=== PATIENT | female | born 1995 | race American Indian/Alaskan Native ===

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

== ENCOUNTER 2020-03-23 13:44 | Emergency (ER) | payer MEDICAID ==
[2020-03-23 15:11] LABS: Blood Urea Nitrogen 10 mg/dL (7-17); Calcium 9.9 mg/dL (8.4-10.2); Hemolysis Index 8
[2020-03-23 15:15] LABS: BUN/Creatinine Ratio 20
[2020-03-23 15:18] LABS: Bilirubin,Urine NEG (Negative); Blood,Urine NEG (Negative); Color,Urine Yellow (Yellow); Mucus,Urine 3+ /HPF; Protein,Urine <15 mg/dL mg/dL (Negative)
[2020-03-23 16:45] LABS: Hematocrit 40.3 % (30.3-42.9); Hemoglobin 13.6 gm/dl (10.1-14.3); Mean Corpuscular HGB Conc 34 % (30-34); Mean Corpuscular Volume 89 fl (79-97); Platelet Count 217 K/mm3 (140-440); Red Blood Count 4.56 M/mm3 (3.65-5.03); Red Cell Distribution Width 13.9 % (13.2-15.2)
[2020-03-23 17:38] LABS: Albumin 4.3 g/dL (3.9-5); Bilirubin,Direct 0.2 mg/dL (0-0.2)
[2020-03-23 17:45] VITALS: BP 145/98
--- NOTE | 2020-03-23 17:55 | Emergency Department Report ---
ED General Adult HPI - General Chief complaint: High BP Stated complaint: HIGH B/P Time Seen by Provider: 03/23/20 17:16 Source: patient Mode of arrival: Ambulatory Limitations: No Limitations - History of Present Illness Initial comments: 24-year-old -Stateless female presents to the emergency room reporting she is having elevated blood pressure. Patient states that she went to her [employer] for her 6-week checkup and it was noted that her blood pressure was 162/111. Patient denies any headache shortness of breath or chest pain. Patient denies any history of preeclampsia or complications during her . Patient currently takes no medications on a daily basis and has no known drug allergies. -: This afternoon Associated Symptoms: denies other symptoms - Related Data Home Medications Medication Instructions Recorded Confirmed Last Taken No Known Home Medications [No 02/10/20 02/10/20 Unknown Reported Home Medications] Allergies Allergy/AdvReac Type Severity Reaction Status Date / Time No Known Allergies Allergy Unverified 04/13/16 15:32 ED Review of Systems ROS: Stated complaint: HIGH B/P Other details as noted in HPI Comment: All other systems reviewed and negative ED Past Medical Hx - Past Medical History Hx Hypertension: No Hx Heart Attack/AMI: No Hx Diabetes: No Hx Deep Vein Thrombosis: No Hx Liver Disease: No Hx Renal Disease: No Hx Sickle Cell Disease: No Hx Seizures: No Hx Asthma: Yes (NO MEDS SINCE AGE 16) Hx COPD: No Hx HIV: No - Surgical History Hx Pacemaker: No Hx Internal Defibrillator: No - Social History Smoking Status: Never Smoker - Medications Home Medications: Home Medications Medication Instructions Recorded Confirmed Last Taken Type No Known Home Medications [No 02/10/20 02/10/20 Unknown History Reported Home Medications] ED Physical Exam - General Limitations: No Limitations General appearance: alert, in no apparent distress - Head Head exam: Present: atraumatic, normocephalic - ENT ENT exam: Present: mucous membranes moist - Neck Neck exam: Present: normal inspection - Respiratory Respiratory exam: Present: normal lung sounds bilaterally. Absent: respiratory distress - Cardiovascular Cardiovascular Exam: Present: regular rate, normal rhythm. Absent: systolic murmur, diastolic murmur, rubs, gallop - Neurological Exam Neurological exam: Present: alert, oriented X3, normal gait - Psychiatric Psychiatric exam: Present: normal affect, normal mood - Skin Skin exam: Present: warm, dry, intact, normal color. Absent: rash ED Course Vital Signs 03/23/20 03/23/20 13:54 17:44 Temperature 98.7 F Pulse Rate 71 82 Respiratory 16 16 Rate Blood Pressure 148/91 Blood Pressure 145/98 [Left] O2 Sat by Pulse 100 100 Oximetry ED Medical Decision Making - Lab Data Result diagrams: 03/23/20 16:12 03/23/20 14:09 - Medical Decision Making 24-year-old -Stateless female presents to the emergency room reporting she is having elevated blood pressure. Patient states that she went to her [employer] for her 6-week checkup and it was noted that her blood pressure was 162/111. Patient denies any headache shortness of breath or chest pain. Patient denies any history of preeclampsia or complications during her . Patient currently takes no medications on a daily basis and has no known drug allergies. Blood pressure today in triage was 148/91. Critical care attestation.: If time is entered above; I have spent that time in minutes in the direct care of this critically ill patient, excluding procedure time. ED Disposition Clinical Impression: Elevated blood pressure reading without diagnosis of hypertension Disposition: DC-01 TO HOME OR SELFCARE Is pt being admited?: No Does the pt Need Aspirin: No Condition: Stable Instructions: DASH Eating Plan (ED), Low Sodium Diet (ED) Additional Instructions: Labs are stable. Blood pressure is elevated but as we spoke his not high enough to place you on blood pressure medication this is best managed by her primary care provider. I have listed 1 below for your convenience. Increase your water intake avoid processed foods and high sodium diet. Referrals: PRIMARY MD SARAY [Primary Care Provider] - 3-5 Days KIMI TRUONG MD [Staff Physician] - 3-5 Days DAGMAR LORA MD [Referring] - 3-5 Days Forms: Work/School Release Form(ED)
[2020-03-23 18:19] LABS: Band Neutrophils # (Manual) 0.1 K/mm3; Platelet Estimate Consistent w Auto; RBC Morphology Normal; Total Cells Counted 100
== END 2020-03-23 18:43 | disposition home or self-care (01) ==
LOC: ED 13:44
DX: R03.0 Elevated blood-pressure reading, without diagnosis of hypertension (principal); J45.909 Unspecified asthma, uncomplicated
CPT/HCPCS: 36415; 80048; 80076; 81001; 83735; 85007; 85025; 87086